=== PATIENT | female | born 1985 | race Caucasian/White ===

== ENCOUNTER 2017-02-12 20:21 | Emergency (ER) | payer OTHER ==
--- NOTE | 2017-02-12 20:25 | ED.ADGEN ---
Adult General Chief Complaint Chief Complaint " I was out playing with my kids in park yesterday.. on the monkey bars.. and slipped and banged my face hard and twisted both my ankles... I broke my glasses.. and my Lt elbow been hurting.. it not gotten any better....".." I even broke my glasses. " HPI HPI Patient is a 31 year old female who presents with above hx and complaints of contusions and abrasions to face, head, , further contusion to Lt. arm, elbow, both knees and twisted both ankles. Pt. is ambulatory with limp. No hx of loss consciousness. Does still complain of head ache. Some photophobia. Review of Systems Review of Systems Constitutional: Denies fever or chills [] Eyes: Denies change in visual acuity, redness, or eye pain [] HENT: Denies nasal congestion or sore throat []Complaints of facial abrasions. Respiratory: Denies cough or shortness of breath [] Cardiovascular: No additional information not addressed in HPI [] GI: Denies abdominal pain, nausea, vomiting, bloody stools or diarrhea [] : Denies dysuria or hematuria [] Musculoskeletal: Denies back pain or joint pain [] Complaints of bilateral ankle pain and Lt elbow pain. Complaints of contusions to bilateral knees. Integument: Denies rash or skin lesions [] Neurologic:Complaints of headache. Denies, focal weakness or sensory changes [] Endocrine: Denies polyuria or polydipsia [] Family History Family History Non-contributory Current Medications Current Medications See Nursing for home meds Allergies Allergies NKDA Physical Exam Physical Exam Constitutional: mild distress, non-toxic appearance. [] HENT: Normocephalic, facial contusions and abrasions,, bilateral external ears normal, oropharynx moist, no oral exudates, nose normal. [] Eyes: PERRLA, EOMI, conjunctiva normal, no discharge. Glasses. Neck: Normal range of motion, no tenderness, supple, no stridor. [] Cardiovascular:Heart rate regular rhythm, no murmur [] Lungs & Thorax: Bilateral breath sounds equal at apexes on auscultation [] Abdomen: Bowel sounds normal, soft, no tenderness, no masses, no pulsatile masses. [] Skin: Warm, dry, no erythema, no rash. contusions to bilateral knees. Back: No tenderness, no CVA tenderness. [] Extremities: ankles and Lt elbow tenderness, no cyanosis, no clubbing, ROM intact, bilateral ankle and Lt. elbow edema. [] Neurologic: Alert and oriented X 3, normal motor function, normal sensory function, no focal deficits noted. [] Psychologic: Affect anxious, judgement normal, mood normal. [] Current Patient Data Vital Signs Vital Signs Date Time Temp Pulse Resp B/P Pulse Ox O2 Delivery O2 Flow Rate FiO2 02/12/17 20:40 98.4 71 20 98 Room Air Lab Results Laboratory Tests Test 02/12/17 21:00 POC Urine HCG, Qualitative hcg negative (Negative) EKG EKG [] Radiology/Procedures Radiology/Procedures My Interpretation of bilateral ankle films and Lt. elbow shows mild edema. But no obvious fracture dislocation. My interpretation of CT head shows no shift , mass, edema, bleed, or fracture. [] Course & Med Decision Making Course & Med Decision Making Pertinent Labs and Imaging studies reviewed. (See chart for details). Patient apply ice for areas of contusion. Patient apply Polysporin to abrasion 4 times a day until healed. Patient take Vicoprofen up 4 times a day for pain via over- the-counter Tylenol and ibuprofen. Follow-up primary care. Return if any concerns. [] Final Impression Final Impression 1. Abrasions 2. Contusions 3. Sprained Ankles 4. Head Injury[] Problems: Dragon Disclaimer Dragon Disclaimer This electronic medical record was generated, in whole or in part, using a voice recognition dictation system. SUSHMA DONALD MD Feb 12, 2017 20:25
[2017-02-12 20:40] VITALS: BP 152/76
--- NOTE | 2017-02-12 21:39 | RAD ---
PROCEDURE CT head, maxillofacial, and cervical spine without contrast. HISTORY Fall on February 11. Headache, light sensitivity. Neck pain. Facial abrasions. COMPARISON No comparison. TECHNIQUE Helical CT imaging of the brain, facial bones, and of the cervical spine is performed without IV contrast. PQRS: One or more the following individualized dose reduction techniques were utilized for the study: 1. Automated exposure control. 2. Adjustment of the mA and/or kV according to patient size. 3. Use of iterative reconstruction technique. FINDINGS No acute calvarial fracture. Visualized globes and orbits are intact. No acute facial bone fracture is seen. The mastoid air cells are clear. Moderate mucosal thickening left maxillary sinus. No air-fluid level. Other paranasal sinuses are clear. There is rightward deviation of the bony nasal septum. The left infundibular canal is opacified. Small bilateral alon bullosa. No midline shift or mass effect. No extra-axial fluid collection or intraparenchymal hemorrhage. White-white matter differentiation is preserved. Basilar cisterns are patent. Ventricles and sulci are normal for patient age. No acute fracture or subluxation of the cervical spine. Disc spaces are maintained. Facet joints and spinous processes are intact. There is minimal degenerative endplate spurring in the cervical spine most apparent at C4/C5. Uncinate process hypertrophy on the left at C4/C5 contributes to mild left neural foraminal narrowing. Visualized lung apices are clear. Soft tissues of the neck unremarkable. IMPRESSION No acute intracranial abnormality. No acute fracture or subluxation of the cervical spine. No acute facial bone fracture. Electronically signed by: Jered Espinal MD (Feb 12, 2017 21:38:07)
[2017-02-12] MEDS ORDERED: HYDR-79 PO (21:58)
--- NOTE | 2017-02-13 08:40 | RAD ---
Indications: Injury from a fall on February 11, 2017. Pain. 3 view left ankle study: No acute fracture or dislocation or osteolytic process is seen. The mortise ankle joint is intact. Plantar spur of the calcaneus is seen. 3 view right ankle study: No acute fracture or dislocation or osteolytic process is seen. The mortise ankle joint is intact. Plantar spur of the calcaneus is seen. IMPRESSION: No acute fracture.
--- NOTE | 2017-02-13 08:42 | RAD ---
Three-view left elbow study History: Injury from a fall on February 11, 2017. Severe left elbow pain. Findings: No left elbow joint effusion is seen. No acute fracture or dislocation or osteolytic process is seen. IMPRESSION: No acute fracture.
--- NOTE | 2017-02-13 08:43 | RAD ---
2 view CXR: Clinical indications: Injury from a fall on February 11, 2017. Chest pain. Comparison: None available.. Findings: No acute lung infiltrate or pleural effusion or pulmonary edema or lung mass or pneumothorax is seen. The heart size, pulmonary vasculature, mediastinum and both lucy are unremarkable. The osseous structures appear intact. Impression: No acute radiographic abnormality is seen.
== END 2017-02-12 22:00 | disposition home or self-care (01) ==
LOC: ER 20:25
DX: S93.402A Sprain of unspecified ligament of left ankle, initial encounter (principal); S93.401A Sprain of unspecified ligament of right ankle, initial encounter; S80.02XA Contusion of left knee, initial encounter; S80.01XA Contusion of right knee, initial encounter; S00.81XA Abrasion of other part of head, initial encounter; W01.198A Fall on same level from slipping, tripping and stumbling with subsequent striking against other object, initial encounter; Y93.89 Activity, other specified; Y99.8 Other external cause status; Y92.830 Public park as the place of occurrence of the external cause
CPT/HCPCS: 70450; 70486; 71020; 72125; 73080; 73610; 81025; 84703; 99284-25